=== PATIENT | female | born 1995 | race Caucasian/White ===

== ENCOUNTER 2023-10-28 08:24 | Emergency (ER) | payer OTHER, MEDICAID, SELFPAY ==
[2023-10-28] VITALS (39 sets, daily range): BP systolic 119–151; BP diastolic 63–100; PULSE 61–114; RESP 16–22; TEMP 36.7; O2SAT 88–99; BMI 50.8
--- NOTE | 2023-10-28 08:59 | ED.GENADULT ---
HPI - General Adult <Sky Marion DO - Last Filed: 11/02/23 07:05> General Chief complaint: Abdominal Pain Stated complaint: gallstone Time Seen by Provider: 10/28/23 08:29 Source: patient Mode of arrival: Ambulatory History of Present Illness HPI narrative: Patient is a 28-year-old otherwise healthy female who is here for evaluation of right upper quadrant abdominal pain. She states her symptoms started approximately 6 days ago. They have been progressively worsening since then. She went to an outside emergency department last evening (approximately 12 hours ago). Had labs performed. Per report she had elevation in her LFTs. Had a CT scan of her abdomen and a right upper quadrant ultrasound. I do have a right upper quadrant ultrasound report in it states that the patient has small mobile gallstones within the gallbladder without additional sonographic signs of cholecystitis. The gallbladder wall was not thickened. There is no pericholecystic fluid. It was reported negative sonographic Rosen's sign. Patient states that she was discharged home with pain medication. She states that her symptoms have progressively worsened since then. She was having some nausea. Has had some alternating constipation and diarrhea. Related Data Allergies Allergy/AdvReac Type Severity Reaction Status Date / Time shellfish derived Allergy swelling, Verified 10/28/23 09:17 redness Review of Systems <Sky Marion DO - Last Filed: 11/02/23 07:05> Constitutional Constitutional: Reports system reviewed and no additional complaints, except as documented Cardiovascular Cardiovascular: Reports system reviewed and no additional complaints, except as documented Respiratory Respiratory: Reports system reviewed and no additional complaints, except as documented Gastrointestinal Gastrointestinal: Reports system reviewed and no additional complaints, except as documented Genitourinary Genitourinary: Reports system reviewed and no additional complaints, except as documented Integumentary/Breasts Skin/Breast: Reports system reviewed and no additional complaints, except as documented Patient History <Sky Marion DO - Last Filed: 11/02/23 07:05> Social History Smoking Status: Never smoker Smoking Status: Never smoker Substance Use Type: marijuana Exam <Sky Marion DO - Last Filed: 11/02/23 07:05> Initial Vital Signs Initial Vital Signs: Vital Signs Temperature 98.1 F 10/28/23 08:49 Pulse Rate 114 H 10/28/23 08:49 Respiratory Rate 22 10/28/23 08:49 Blood Pressure 138/96 H 10/28/23 08:49 Pulse Oximetry 98 10/28/23 08:49 Oxygen Delivery Method Room Air 10/28/23 08:49 Const General: cooperative and No ill appearing [facility] Head: normal to inspection and normocephalic Resp Effort & Inspection: normal respiratory effort Auscultation: clear to auscultation bilaterally Cardio Rate: regular rate Rhythm: regular rhythm GI Inspection: normal to inspection and non-distended Palpation: soft, No firm, No guarding and tender (Right upper quadrant) Skin General: no rashes or lesions noted Neuro General: patient alert, patient awake and moves all extremities <Katharine Ahumada DO - Last Filed: 10/28/23 22:22> Initial Vital Signs Initial Vital Signs: Vital Signs Temperature 98.1 F 10/28/23 08:49 Pulse Rate 114 H 10/28/23 08:49 Respiratory Rate 22 10/28/23 08:49 Blood Pressure 138/96 H 10/28/23 08:49 Pulse Oximetry 98 10/28/23 08:49 Oxygen Delivery Method Room Air 10/28/23 08:49 Course <Sky Marion, DO - Last Filed: 11/02/23 07:05> Orders Ordered: Discontinued Medications Al Hydrox/Mg Hydrox/Simethicone 20 ml/ Lidocaine HCl 15 ml 0 ml PO NOW ONE Stop: 10/28/23 15:26 Last Admin: 10/28/23 15:33 Dose: 10 ml Documented By: SPF Droperidol (Droperidol 5 Mg/2 Ml Vial) 1.25 mg IV NOW ONE Stop: 10/28/23 20:01 Last Admin: 10/28/23 20:20 Dose: 1.25 mg Documented By: SB Hydromorphone HCl (Hydromorphone 1 Mg Inj) 1 mg IV NOW ONE Stop: 10/28/23 10:13 Last Admin: 10/28/23 10:32 Dose: 1 mg Documented By: SPF Hydromorphone HCl (Hydromorphone 1 Mg Inj) 1 mg IV NOW ONE Stop: 10/28/23 13:52 Last Admin: 10/28/23 14:02 Dose: 1 mg Documented By: MLM Hydromorphone HCl (Hydromorphone 1 Mg Inj) 1 mg IV Q3HR PRN PRN Reason: Pain, Mild (1-3) Last Admin: 10/28/23 20:28 Dose: 1 mg Documented By: Admin: 10/28/23 17:16 Dose: 1 mg Documented By: SPF Piperacillin Sod/Tazobactam (Sod 4.5 gm/ Sodium Chloride) 100 mls @ 200 mls/hr IV NOW ONE Stop: 10/28/23 10:36 Last Infusion: 10/28/23 12:00 Dose: Infused Documented By: Admin: 10/28/23 11:16 Dose: 200 mls/hr Documented By: SPF Sodium Chloride (Normal Saline 0.9%) 1,000 mls @ 125 mls/hr IV CONT ERMA Last Admin: 10/28/23 13:49 Dose: 125 mls/hr Documented By: SUKUMAR Piperacillin Sod/Tazobactam (Sod 4.5 gm/ Sodium Chloride) 100 mls @ 200 mls/hr IV Q6HR [facility] Last Infusion: 10/28/23 19:00 Dose: Infused Documented By: Admin: 10/28/23 18:31 Dose: 200 mls/hr Documented By: SPF Ketorolac Tromethamine (Ketorolac 30 Mg/Ml Vial) 30 mg IV NOW ONE Stop: 10/28/23 08:59 Last Admin: 10/28/23 09:17 Dose: 30 mg Documented By: SUKUMAR Lorazepam (Lorazepam 2 Mg/Ml Inj) 0.5 mg IV NOW ONE Stop: 10/28/23 18:19 Last Admin: 10/28/23 18:25 Dose: 0.5 mg Documented By: SUKUMAR Metoclopramide HCl (Metoclopramide 10 Mg/2 Ml Inj) 10 mg IV NOW ONE Stop: 10/28/23 11:34 Last Admin: 10/28/23 12:00 Dose: 10 mg Documented By: SUKUMAR Ondansetron HCl (Ondansetron 4 Mg/2 Ml Inj) 4 mg IV NOW ONE Stop: 10/28/23 08:59 Last Admin: 10/28/23 09:18 Dose: 4 mg Documented By: SUKUMAR Ondansetron HCl (Ondansetron 4 Mg/2 Ml Inj) 4 mg IV NOW ONE Stop: 10/28/23 14:34 Last Admin: 10/28/23 14:47 Dose: 4 mg Documented By: SUKUMAR Pantoprazole Sodium (Pantoprazole 40 Mg Vial) 40 mg IV NOW ONE Stop: 10/28/23 14:31 Last Admin: 10/28/23 14:45 Dose: 40 mg Documented By: SUKUMAR Vital Signs Vital signs: Vital Signs - 8 hr 10/28/23 14:30 10/28/23 14:31 10/28/23 14:31 Pulse Rate 83 89 Respiratory Rate Blood Pressure 129/75 Pulse Oximetry 99 98 Oxygen Delivery Method Oxygen Flow Rate 10/28/23 15:00 10/28/23 15:00 10/28/23 15:30 Pulse Rate 101 H 93 H Respiratory Rate Blood Pressure 121/69 Pulse Oximetry 98 99 Oxygen Delivery Method Room Air Oxygen Flow Rate 10/28/23 15:30 10/28/23 16:00 10/28/23 16:01 Pulse Rate 78 101 H Respiratory Rate Blood Pressure 129/81 Pulse Oximetry 97 97 Oxygen Delivery Method Oxygen Flow Rate 10/28/23 16:01 10/28/23 16:30 10/28/23 16:31 Pulse Rate 94 H 90 Respiratory Rate Blood Pressure 132/80 Pulse Oximetry 97 97 Oxygen Delivery Method Oxygen Flow Rate 10/28/23 16:31 10/28/23 17:00 10/28/23 17:01 Pulse Rate 82 94 H Respiratory Rate Blood Pressure 124/63 Pulse Oximetry 98 97 Oxygen Delivery Method Room Air Room Air Oxygen Flow Rate 10/28/23 17:01 10/28/23 17:30 10/28/23 18:00 Pulse Rate 82 90 Respiratory Rate 18 Blood Pressure 119/91 H Pulse Oximetry 97 97 Oxygen Delivery Method Room Air Oxygen Flow Rate 10/28/23 18:00 10/28/23 18:30 10/28/23 18:43 Pulse Rate 71 Respiratory Rate Blood Pressure 126/74 Pulse Oximetry 98 88 L Oxygen Delivery Method Room Air Room Air Oxygen Flow Rate 10/28/23 18:45 10/28/23 19:00 10/28/23 19:01 Pulse Rate 64 88 Respiratory Rate 16 Blood Pressure 139/70 Pulse Oximetry 98 98 Oxygen Delivery Method Nasal Cannula Oxygen Flow Rate 2 10/28/23 19:01 10/28/23 19:15 10/28/23 19:30 Pulse Rate 88 80 70 Respiratory Rate 16 Blood Pressure Pulse Oximetry 97 98 98 Oxygen Delivery Method Room Air Oxygen Flow Rate 10/28/23 19:45 10/28/23 20:00 10/28/23 20:01 Pulse Rate 97 H 87 74 Respiratory Rate Blood Pressure Pulse Oximetry 98 98 98 Oxygen Delivery Method Oxygen Flow Rate 10/28/23 20:01 10/28/23 20:15 10/28/23 20:30 Pulse Rate 89 98 H Respiratory Rate Blood Pressure 135/75 Pulse Oximetry 97 98 Oxygen Delivery Method Oxygen Flow Rate 10/28/23 20:45 10/28/23 22:04 10/28/23 22:05 Pulse Rate 61 112 H Respiratory Rate Blood Pressure Pulse Oximetry 99 93 93 Oxygen Delivery Method Room Air Oxygen Flow Rate 10/28/23 22:05 Pulse Rate Respiratory Rate 16 Blood Pressure 151/100 H Pulse Oximetry Oxygen Delivery Method Oxygen Flow Rate <Katharine Ahumada, - Last Filed: 10/28/23 22:22> Orders Ordered: Discontinued Medications Al Hydrox/Mg Hydrox/Simethicone 20 ml/ Lidocaine HCl 15 ml 0 ml PO NOW ONE Stop: 10/28/23 15:26 Last Admin: 10/28/23 15:33 Dose: 10 ml Documented By: SPF Droperidol (Droperidol 5 Mg/2 Ml Vial) 1.25 mg IV NOW ONE Stop: 10/28/23 20:01 Last Admin: 10/28/23 20:20 Dose: 1.25 mg Documented By: SB Hydromorphone HCl (Hydromorphone 1 Mg Inj) 1 mg IV NOW ONE Stop: 10/28/23 10:13 Last Admin: 10/28/23 10:32 Dose: 1 mg Documented By: SPF Hydromorphone HCl (Hydromorphone 1 Mg Inj) 1 mg IV NOW ONE Stop: 10/28/23 13:52 Last Admin: 10/28/23 14:02 Dose: 1 mg Documented By: MLM Hydromorphone HCl (Hydromorphone 1 Mg Inj) 1 mg IV Q3HR PRN PRN Reason: Pain, Mild (1-3) Last Admin: 10/28/23 20:28 Dose: 1 mg Documented By: Admin: 10/28/23 17:16 Dose: 1 mg Documented By: SPF Piperacillin Sod/Tazobactam (Sod 4.5 gm/ Sodium Chloride) 100 mls @ 200 mls/hr IV NOW ONE Stop: 10/28/23 10:36 Last Infusion: 10/28/23 12:00 Dose: Infused Documented By: Admin: 10/28/23 11:16 Dose: 200 mls/hr Documented By: SPF Sodium Chloride (Normal Saline 0.9%) 1,000 mls @ 125 mls/hr IV CONT ERMA Last Admin: 10/28/23 13:49 Dose: 125 mls/hr Documented By: SPF Piperacillin Sod/Tazobactam (Sod 4.5 gm/ Sodium Chloride) 100 mls @ 200 mls/hr IV Q6HR ERMA Last Infusion: 10/28/23 19:00 Dose: Infused Documented By: Admin: 10/28/23 18:31 Dose: 200 mls/hr Documented By: SPF Ketorolac Tromethamine (Ketorolac 30 Mg/Ml Vial) 30 mg IV NOW ONE Stop: 10/28/23 08:59 Last Admin: 10/28/23 09:17 Dose: 30 mg Documented By: SUKUMAR Lorazepam (Lorazepam 2 Mg/Ml Inj) 0.5 mg IV NOW ONE Stop: 10/28/23 18:19 Last Admin: 10/28/23 18:25 Dose: 0.5 mg Documented By: SUKUMAR Metoclopramide HCl (Metoclopramide 10 Mg/2 Ml Inj) 10 mg IV NOW ONE Stop: 10/28/23 11:34 Last Admin: 10/28/23 12:00 Dose: 10 mg Documented By: SUKUMAR Ondansetron HCl (Ondansetron 4 Mg/2 Ml Inj) 4 mg IV NOW ONE Stop: 10/28/23 08:59 Last Admin: 10/28/23 09:18 Dose: 4 mg Documented By: SUKUMAR Ondansetron HCl (Ondansetron 4 Mg/2 Ml Inj) 4 mg IV NOW ONE Stop: 10/28/23 14:34 Last Admin: 10/28/23 14:47 Dose: 4 mg Documented By: SPF Pantoprazole Sodium (Pantoprazole 40 Mg Vial) 40 mg IV NOW ONE Stop: 10/28/23 14:31 Last Admin: 10/28/23 14:45 Dose: 40 mg Documented By: SUKUMAR Vital Signs Vital signs: Vital Signs - 8 hr 10/28/23 14:30 10/28/23 14:31 10/28/23 14:31 Pulse Rate 83 89 Respiratory Rate Blood Pressure 129/75 Pulse Oximetry 99 98 Oxygen Delivery Method Oxygen Flow Rate 10/28/23 15:00 10/28/23 15:00 10/28/23 15:30 Pulse Rate 101 H 93 H Respiratory Rate Blood Pressure 121/69 Pulse Oximetry 98 99 Oxygen Delivery Method Room Air Oxygen Flow Rate 10/28/23 15:30 10/28/23 16:00 10/28/23 16:01 Pulse Rate 78 101 H Respiratory Rate Blood Pressure 129/81 Pulse Oximetry 97 97 Oxygen Delivery Method Oxygen Flow Rate 10/28/23 16:01 10/28/23 16:30 10/28/23 16:31 Pulse Rate 94 H 90 Respiratory Rate Blood Pressure 132/80 Pulse Oximetry 97 97 Oxygen Delivery Method Oxygen Flow Rate 10/28/23 16:31 10/28/23 17:00 10/28/23 17:01 Pulse Rate 82 94 H Respiratory Rate Blood Pressure 124/63 Pulse Oximetry 98 97 Oxygen Delivery Method Room Air Room Air Oxygen Flow Rate 10/28/23 17:01 10/28/23 17:30 10/28/23 18:00 Pulse Rate 82 90 Respiratory Rate 18 Blood Pressure 119/91 H Pulse Oximetry 97 97 Oxygen Delivery Method Room Air Oxygen Flow Rate 10/28/23 18:00 10/28/23 18:30 10/28/23 18:43 Pulse Rate 71 Respiratory Rate Blood Pressure 126/74 Pulse Oximetry 98 88 L Oxygen Delivery Method Room Air Room Air Oxygen Flow Rate 10/28/23 18:45 10/28/23 19:00 10/28/23 19:01 Pulse Rate 64 88 Respiratory Rate 16 Blood Pressure 139/70 Pulse Oximetry 98 98 Oxygen Delivery Method Nasal Cannula Oxygen Flow Rate 2 10/28/23 19:01 10/28/23 19:15 10/28/23 19:30 Pulse Rate 88 80 70 Respiratory Rate 16 Blood Pressure Pulse Oximetry 97 98 98 Oxygen Delivery Method Room Air Oxygen Flow Rate 10/28/23 19:45 10/28/23 20:00 10/28/23 20:01 Pulse Rate 97 H 87 74 Respiratory Rate Blood Pressure Pulse Oximetry 98 98 98 Oxygen Delivery Method Oxygen Flow Rate 10/28/23 20:01 10/28/23 20:15 10/28/23 20:30 Pulse Rate 89 98 H Respiratory Rate Blood Pressure 135/75 Pulse Oximetry 97 98 Oxygen Delivery Method Oxygen Flow Rate 10/28/23 20:45 10/28/23 22:04 10/28/23 22:05 Pulse Rate 61 112 H Respiratory Rate Blood Pressure Pulse Oximetry 99 93 93 Oxygen Delivery Method Room Air Oxygen Flow Rate 10/28/23 22:05 Pulse Rate Respiratory Rate 16 Blood Pressure 151/100 H Pulse Oximetry Oxygen Delivery Method Oxygen Flow Rate Medical Decision Making <Sky Marion DO - Last Filed: 11/02/23 07:05> Medical Records Medical records reviewed: Yes I reviewed the patient's medical records. Lab Data Lab results reviewed: Yes I reviewed the patient's lab results. 10/28/23 09:15 10/28/23 09:15 Labs: Lab Results 10/28/23 10/28/23 Range/Units 09:15 13:00 WBC 7.2 (4.5-11.0) X10^3/uL RBC 4.46 (4.0-5.2) X10^6/uL Hgb 11.8 L (12.0-16.0) g/dL Hct 36.4 (36-46) % MCV 81.6 (80-100) fL MCH 26.5 (26-34) PG MCHC 32.5 (30-36) % RDW 17.9 H (11.6-14.8) % Plt Count 390 (150-400) X10^3/uL Neut % (Auto) 70.5 (50-75) % Lymph % (Auto) 22.3 L (25-40) % [place] % (Auto) 5.9 (3-14) % Eos % (Auto) 0.7 L (2-4) % Baso % (Auto) 0.6 (0-2) % Neut # (Auto) 5100 (7805-2983) /uL Lymph # (Auto) 1600 (6005-2492) /uL [place] # (Auto) 400 (0-900) /uL Eos # (Auto) 100 (0-450) /uL Baso # (Auto) 0 (0-100) /uL Sodium 139 (137-145) mmol/L Potassium 3.6 (3.4-5.1) mmol/L Chloride 109 H (98-107) mmol/L Carbon Dioxide 19 L (22-32) mmol/L BUN 5 L (7-17) mg/dL Creatinine 0.43 L (0.52-1.04) mg/dL Estimated GFR > 60 (>60) mL/min BUN/Creatinine Ratio 11.6 (6-22) Glucose 116 H (70-100) mg/dL Calcium 9.9 (8.4-10.2) mg/dL Total Bilirubin 1.9 H (0.2-1.3) mg/dL AST 586 H (14-36) IU/L ALT 1391 H (<35) IU/L Alkaline Phosphatase 272 H (38-126) U/L Total Protein 8.5 H (6.3-8.2) g/dL Albumin 5.0 (3.5-5.0) g/dL Globulin 3.5 (1.7-4.1) g/dL Albumin/Globulin Ratio 1.4 (1.0-2.8) Lipase 49 (23-300) U/L Urine Color Yellow Urine Appearance Clear Urine pH 8.0 (4.5-8.0) Ur Specific [place] 1.020 (1.000-1.035) Urine Protein 2+ H (Negative) Urine Glucose (UA) Negative (Negative) g/dL Urine Ketones 3+ H (NEGATIVE) Urine Occult Blood Negative (Negative) Urine Nitrate Negative (Negative) Urine Bilirubin 2+ H (NEGATIVE) Ur Bilirubin Confirm Positive H (Negative) Urine Urobilinogen 1.0 (0.2) E.U./dL Ur Leukocyte Esterase Negative (NEGATIVE) Urine RBC None seen (0-5/HPF) Urine WBC 0-1/hpf (0-5/HPF) Ur Squamous Epith Cells 1-5 /hpf (0-5/HPF) Urine Bacteria None seen (None) Urine Mucus 1+ H (Negative) Ur Culture Indicated? Cult not indicated Vol Urine Centrifuged 10ml (spun) Point of Care Testing Test Results Negative Urine Dip Bedside Urine Glucose Negative Bedside Urine Bilirubin + 1 Bedside Urine Ketone +++ 80 Urine Specific [place] 1.015 Bedside Urine Occult Blood - Negative Bedside Urine pH 8.5 Bedside Urine Protein + 30 Bedside Urine Urobilinogen - Negative Bedside Urine Nitrite - Negative Bedside Urine Leukocytes +/- 15 Esterase Point of care testing: Point of Care Testing Test Results Negative Urine Dip Bedside Urine Glucose Negative Bedside Urine Bilirubin + 1 Bedside Urine Ketone +++ 80 Urine Specific [place] 1.015 Bedside Urine Occult Blood - Negative Bedside Urine pH 8.5 Bedside Urine Protein + 30 Bedside Urine Urobilinogen - Negative Bedside Urine Nitrite - Negative Bedside Urine Leukocytes +/- 15 Esterase Imaging Data US - abdomen: Radiologist's Impression: PROCEDURE: US ABDOMEN LIMITED INDICATIONS: RUQ US eval for GB pathology TECHNIQUE: Real-time scanning was performed of the abdominal and retroperitoneal organs, with image documentation. COMPARISON: None. FINDINGS: Images are degraded by body habitus. Liver: Liver is normal in size and homogeneous in echotexture. Gallbladder: There are a few mobile stones measure up to 8 mm. Positive sonographic Rosen sign per rice milling supervisor. No pericholecystic fluid. Biliary ducts: Intrahepatic bile ducts are non-dilated. Extrahepatic bile duct caliber measures 9.6 mm. Normal is 6-7 mm or less in diameter, or 10 mm or less post-cholecystectomy. Pancreas: Visualized portions of the pancreas are sonographically normal. Miscellaneous: No free abdominal fluid. IMPRESSION: Acute cholecystitis given the positive sonographic Rosen sign and cholelithiasis. There is continued increase in size of the common biliary duct suggesting distal obstruction. MRCP: Radiologist's Impression: PROCEDURE: MR ABDOMEN WO/W CON INDICATIONS: Eval for choledocholithiasis TECHNIQUE: Coronal HASTE, axial 2D FLASH in- and [id number]; axial breath-hold T2 FSE. Dynamic axial VIBE during the administration of contrast; post-contrast coronal VIBE or 2D FLASH with fat saturation from the hepatic dome to the iliac crests. Optional diffusion weighted imaging and ADC may be performed. COMPARISON: [facility], , US ABDOMEN LIMITED, 10/28/2023, 9:53. FINDINGS: Image quality: Diagnostic. Lung bases: Unremarkable. Liver: No solid mass. Gallbladder: Multiple gallstones within the gallbladder. Biliary ducts: Mild central common biliary ductal dilation measuring up to 9 mm. And the distal common biliary duct in the ampulla Vater there is abrupt shouldering with a possible stone identified on coronal image 6 of series 11 measuring 6 mm. Pancreas: No ductal dilation. Spleen: Size is within normal limits. Adrenal Glands: No adrenal nodules. Kidneys and Ureters: No hydronephrosis. No solid mass. No complex renal cystic lesion which requires follow up. Stomach and Bowel: Normal colonic caliber, without significant wall thickening. Peritoneum: No abnormal intraperitoneal fluid. No free air. Ventral Wall: No hernia. Abdominal Nodes: No retroperitoneal or mesenteric adenopathy by size criteria. Vessels: Aorta and inferior vena cava are normal in size. Bones: No aggressive osseous abnormality. IMPRESSION: Choledocholithiasis with stone near the ampulla measuring 6 mm with associated dilation of the common biliary duct. Cholelithiasis. MDM Narrative Medical decision making narrative: Patient has epigastric and right upper quadrant abdominal pain. Has not elevation in bilirubin and LFTs. Right upper quadrant ultrasound concerning for acute cholecystitis. MRCP shows choledocholithiasis. Because this patient requires ERCP. Antibiotics administered. Fluids administered. Will continue to try to control pain and nausea. Was able to review the ED record from yesterday. Presentation is similar to 2 today. Attempts made to contact multiple facilities that have ERCP capability. Currently no bed availability. Will keep here in the emergency department until disposition can be met. Care turned over to evening provider. <Katharine Ahumada, - Last Filed: 10/28/23 22:22> Lab Data Labs: Lab Results 10/28/23 10/28/23 Range/Units 09:15 13:00 WBC 7.2 (4.5-11.0) X10^3/uL RBC 4.46 (4.0-5.2) X10^6/uL Hgb 11.8 L (12.0-16.0) g/dL Hct 36.4 (36-46) % MCV 81.6 (80-100) fL MCH 26.5 (26-34) PG MCHC 32.5 (30-36) % RDW 17.9 H (11.6-14.8) % Plt Count 390 (150-400) X10^3/uL Neut % (Auto) 70.5 (50-75) % Lymph % (Auto) 22.3 L (25-40) % [place] % (Auto) 5.9 (3-14) % Eos % (Auto) 0.7 L (2-4) % Baso % (Auto) 0.6 (0-2) % Neut # (Auto) 5100 (0981-3628) /uL Lymph # (Auto) 1600 (9848-6182) /uL [place] # (Auto) 400 (0-900) /uL Eos # (Auto) 100 (0-450) /uL Baso # (Auto) 0 (0-100) /uL Sodium 139 (137-145) mmol/L Potassium 3.6 (3.4-5.1) mmol/L Chloride 109 H (98-107) mmol/L Carbon Dioxide 19 L (22-32) mmol/L BUN 5 L (7-17) mg/dL Creatinine 0.43 L (0.52-1.04) mg/dL Estimated GFR > 60 (>60) mL/min BUN/Creatinine Ratio 11.6 (6-22) Glucose 116 H (70-100) mg/dL Calcium 9.9 (8.4-10.2) mg/dL Total Bilirubin 1.9 H (0.2-1.3) mg/dL AST 586 H (14-36) IU/L ALT 1391 H (<35) IU/L Alkaline Phosphatase 272 H (38-126) U/L Total Protein 8.5 H (6.3-8.2) g/dL Albumin 5.0 (3.5-5.0) g/dL Globulin 3.5 (1.7-4.1) g/dL Albumin/Globulin Ratio 1.4 (1.0-2.8) Lipase 49 (23-300) U/L Urine Color Yellow Urine Appearance Clear Urine pH 8.0 (4.5-8.0) Ur Specific [place] 1.020 (1.000-1.035) Urine Protein 2+ H (Negative) Urine Glucose (UA) Negative (Negative) g/dL Urine Ketones 3+ H (NEGATIVE) Urine Occult Blood Negative (Negative) Urine Nitrate Negative (Negative) Urine Bilirubin 2+ H (NEGATIVE) Ur Bilirubin Confirm Positive H (Negative) Urine Urobilinogen 1.0 (0.2) E.U./dL Ur Leukocyte Esterase Negative (NEGATIVE) Urine RBC None seen (0-5/HPF) Urine WBC 0-1/hpf (0-5/HPF) Ur Squamous Epith Cells 1-5 /hpf (0-5/HPF) Urine Bacteria None seen (None) Urine Mucus 1+ H (Negative) Ur Culture Indicated? Cult not indicated Vol Urine Centrifuged 10ml (spun) Point of Care Testing Test Results Negative Urine Dip Bedside Urine Glucose Negative Bedside Urine Bilirubin + 1 Bedside Urine Ketone +++ 80 Urine Specific [place] 1.015 Bedside Urine Occult Blood - Negative Bedside Urine pH 8.5 Bedside Urine Protein + 30 Bedside Urine Urobilinogen - Negative Bedside Urine Nitrite - Negative Bedside Urine Leukocytes +/- 15 Esterase Point of care testing: Point of Care Testing Test Results Negative Urine Dip Bedside Urine Glucose Negative Bedside Urine Bilirubin + 1 Bedside Urine Ketone +++ 80 Urine Specific [place] 1.015 Bedside Urine Occult Blood - Negative Bedside Urine pH 8.5 Bedside Urine Protein + 30 Bedside Urine Urobilinogen - Negative Bedside Urine Nitrite - Negative Bedside Urine Leukocytes +/- 15 Esterase ECG Data Attestation: I personally reviewed and interpreted this ECG as follows: Interpretation: Sinus rhythm marked sinus arrhythmia rate 81 FL 150 QRS 84 QTC of 448. No acute ST changes appreciated. MDM Narrative Medical decision making narrative: Patient has epigastric and right upper quadrant abdominal pain. Has not elevation in bilirubin and LFTs. Right upper quadrant ultrasound concerning for acute cholecystitis. MRCP shows choledocholithiasis. Because this patient requires ERCP. Antibiotics administered. Fluids administered. Will continue to try to control pain and nausea. Was able to review the ED record from yesterday. Presentation is similar to 2 today. Attempts made to contact multiple facilities that have ERCP capability. Currently no bed availability. Will keep here in the emergency department until disposition can be met. Care turned over to evening provider. 10/28/2023 Dr. Ahumada: Patient signed out to myself. Patient seen and evaluated by myself has epigastric right upper quadrant pain was seen yesterday at outside facility has trending upwards LFTs from 1.6-1.9 bilirubin and AST of 553 with an ALT of 1346 alk-phos of 239 and a lipase less than 10 today AST is 556 ALT is 1391, alk-phos is 272 with negative lipase. Patient had repeat ultrasound today which shows acute cholecystitis with positive Rosen's sign cholelithiasis, few mobile stones no pericholecystic fluids dilated extrahepatic bile duct at 9.6 cm followed by MRCP which shows choledocholithiasis with stone near the ampulla measuring 6 mm with associated dilation of common bile duct cyst with cholelithiasis. Patient is on Zosyn q.6 hours, she has had multiple doses of pain medications, antinausea medication no active vomiting but still quite uncomfortable. Patient did have a dose of Ativan about hour after Dilaudid and has since required a L or so of oxygen. Has not had any requiring before she would may have some hypoventilation secondary to her habitus as well. This was relayed to Dr. Leal the hospitalist. Calls have been placed awaiting call back from Gastroenterology for possible transfer for ERCP. Spoke with Dr. Emilia Leal, hospitalist who accepts for inpatient. Plan for ERCP with Gastroenterology and they will decide whether or not to have patient's gallbladder removed. Waiting call back with bed assignment. Patient has continued to have quite a bit of nausea. Has had Zofran, Reglan, Ativan with consistent nausea. She did have droperidol at facility yesterday which was somewhat helpful so EKG was obtained to evaluate for QT appears appropriate patient was given a dose in the department. Patient continues to feel improved after droperidol on recheck and comfortable with transfer. Discharge Plan Departure Patient Disposition: [facility] Clinical Impression: Choledocholithiasis, Acute cholecystitis
--- NOTE | 2023-10-28 09:07 | DI.US.S_ITS ---
PROCEDURE: US ABDOMEN LIMITED INDICATIONS: RUQ US eval for GB pathology TECHNIQUE: Real-time scanning was performed of the abdominal and retroperitoneal organs, with image documentation. COMPARISON: None. FINDINGS: Images are degraded by body habitus. Liver: Liver is normal in size and homogeneous in echotexture. Gallbladder: There are a few mobile stones measure up to 8 mm. Positive sonographic Rosen sign per paramedic rn. No pericholecystic fluid. Biliary ducts: Intrahepatic bile ducts are non-dilated. Extrahepatic bile duct caliber measures 9.6 mm. Normal is 6-7 mm or less in diameter, or 10 mm or less post-cholecystectomy. Pancreas: Visualized portions of the pancreas are sonographically normal. Miscellaneous: No free abdominal fluid. IMPRESSION: Acute cholecystitis given the positive sonographic Rosen sign and cholelithiasis. There is continued increase in size of the common biliary duct suggesting distal obstruction. Dictated by: Corby Jones M.D. on 10/28/2023 at 9:25 Approved by: Corby Jones M.D. on 10/28/2023 at 9:31
[2023-10-28] MEDS: KETOROLAC 30 MG/ML VIAL IV (09:17)
[2023-10-28] MEDS: ONDANSETRON 4 MG/2 ML INJ IV ×2 (09:18→14:47)
[2023-10-28 09:33] LABS: Add Manual Diff / Slide Review NO; Basophils Absolute Auto 0 /uL (0-100); Basophils Percent Auto 0.6 % (0-2); Eosinophils Absolute Auto 100 /uL (0-450); Eosinophils Percent Auto 0.7 % (2-4); Hematocrit 36.4 % (36-46); Hemoglobin 11.8 g/dL (12.0-16.0); Lymphocytes Absolute Auto 1600 /uL (1100-4500); Lymphocytes Percent Auto 22.3 % (25-40); Mean Corpuscular HGB Conc 32.5 % (30-36); Mean Corpuscular Hemoglobin 26.5 PG (26-34); Mean Corpuscular Volume 81.6 fL (80-100); Monocytes Absolute Auto 400 /uL (0-900); Monocytes Percent Auto 5.9 % (3-14); Neutrophils Absolute Auto 5100 /uL (1500-7000); Neutrophils Percent Auto 70.5 % (50-75); Platelet Count 390 X10^3/uL (150-400); Red Blood Cell Count 4.46 X10^6/uL (4.0-5.2); Red Cell Distribution Width 17.9 % (11.6-14.8); White Blood Cell Count 7.2 X10^3/uL (4.5-11.0)
[2023-10-28 09:48] LABS: Albumin Globulin Ratio 1.4 (1.0-2.8); Alkaline Phosphatase 272 U/L (38-126); Aspartate Aminotransferase 586 IU/L (14-36); BUN Creatinine Ratio 11.6 (6-22); Bilirubin Total 1.9 mg/dL (0.2-1.3); Blood Urea Nitrogen 5 mg/dL (7-17); Calcium 9.9 mg/dL (8.4-10.2); Carbon Dioxide 19 mmol/L (22-32); Chloride 109 mmol/L (98-107); Estimated Glomerular Filt Rate > 60 mL/min (>60); Globulin 3.5 g/dL (1.7-4.1); Glucose 116 mg/dL (70-100); HEMOLYSIS < 15 (0-50); Lipase 49 U/L (23-300); Potassium 3.6 mmol/L (3.4-5.1); Sodium 139 mmol/L (137-145); Total Protein 8.5 g/dL (6.3-8.2)
[2023-10-28 09:54] LABS: Alanine Aminotransferase 1391 IU/L (<35)
[2023-10-28] MEDS: HYDROMORPHONE 1 MG INJ IV ×4 (10:32→20:28)
[2023-10-28] MEDS: PIPERACILLIN/TAZO 4.5 GM in SODIUM CHLORIDE 0.9% 100 ML IV ×2 (11:16→18:31)
[2023-10-28] MEDS: METOCLOPRAMIDE 10 MG/2 ML INJ IV (12:00)
[2023-10-28 13:45] LABS: Appearance Urine UA CLEAR; Bilirubin Urine UA 2+ (NEGATIVE); Color Urine UA YELLOW; Glucose Urine UA NEGATIVE (Negative); Ketones Urine UA 3+ (NEGATIVE); Leukocyte Esterase Urine UA NEGATIVE (NEGATIVE); Nitrite Urine UA NEGATIVE (Negative); Occult Blood Urine UA NEGATIVE (Negative); Protein Urine UA 2+ (Negative)
[2023-10-28] MEDS: SODIUM CHLORIDE 0.9% 1,000 ML 125 ML IV (13:49)
[2023-10-28 13:52] LABS: Urine Volume 10mL (spun)
[2023-10-28 13:56] LABS: Bacteria Urine None Seen; Culture Indicated Urine Cult Not Indicated; Mucus Urine 1+ (Negative); RBC Urine None Seen (0-5/HPF); Squamous Epithelial Cell Urine 1-5 /HPF (0-5/HPF); WBC Urine 0-1/HPF (0-5/HPF)
[2023-10-28 13:57] LABS: Ictotest Urine Positive (Negative)
--- NOTE | 2023-10-28 14:24 | DI.MRI.S_ITS ---
PROCEDURE: MR ABDOMEN WO/W CON INDICATIONS: Eval for choledocholithiasis TECHNIQUE: Coronal HASTE, axial 2D FLASH in- and [id number]; axial breath-hold T2 FSE. Dynamic axial VIBE during the administration of contrast; post-contrast coronal VIBE or 2D FLASH with fat saturation from the hepatic dome to the iliac crests. Optional diffusion weighted imaging and ADC may be performed. COMPARISON: [facility], US, US ABDOMEN LIMITED, 10/28/2023, 9:53. FINDINGS: Image quality: Diagnostic. Lung bases: Unremarkable. Liver: No solid mass. Gallbladder: Multiple gallstones within the gallbladder. Biliary ducts: Mild central common biliary ductal dilation measuring up to 9 mm. And the distal common biliary duct in the ampulla Vater there is abrupt shouldering with a possible stone identified on coronal image 6 of series 11 measuring 6 mm. Pancreas: No ductal dilation. Spleen: Size is within normal limits. Adrenal Glands: No adrenal nodules. Kidneys and Ureters: No hydronephrosis. No solid mass. No complex renal cystic lesion which requires follow up. Stomach and Bowel: Normal colonic caliber, without significant wall thickening. Peritoneum: No abnormal intraperitoneal fluid. No free air. Ventral Wall: No hernia. Abdominal Nodes: No retroperitoneal or mesenteric adenopathy by size criteria. Vessels: Aorta and inferior vena cava are normal in size. Bones: No aggressive osseous abnormality. IMPRESSION: Choledocholithiasis with stone near the ampulla measuring 6 mm with associated dilation of the common biliary duct. Cholelithiasis. Dictated by: Corby Jones M.D. on 10/28/2023 at 13:30 Approved by: Corby Jones M.D. on 10/28/2023 at 13:36
[2023-10-28] MEDS: PANTOPRAZOLE 40 MG VIAL IV (14:45)
--- NOTE | 2023-10-28 15:25 | PC.NURSE ---
Pt reports her stomach is feeling better but patient continues to have cough/dry heaving. She describes having something stuck in my throat. Provider notified, new orders, see MAR.
[2023-10-28] MEDS: MAG HYDROX/ALUMINUM/SIMETH SUS 20 ML, LIDOCAINE VISCOUS 2% 15 ML PO (15:33)
[2023-10-28] MEDS: LORazepam 2 MG/ML INJ 0.5 MG IV (18:25)
[2023-10-28] MEDS: DROPERIDOL 5 MG/2 ML VIAL 1.25 MG IV (20:20)
--- NOTE | 2023-10-28 22:25 | PC.NURSE ---
221: [facility] transport crew arrives, report given to ANAMIKA De La Rosa RN. Patient ambulatory in hallway, used bathroom prior to positioning self on transport stretcher. Patient reports pain much better controlled and nausea is minimal. Patient is on RA. IV to L AC is patent and NS continues to infuse at 125mls/hr. 222: [facility] called to give report to receiving RN (#[phone], Ext [phone]). Spoke with LYNDSAY Betancourt who took report and states he will be taking the patient. All questions answered. Patient left [facility] at approximately 2225, ETA for patient's arrival to accepting facility is 2320.
== END 2023-10-28 22:32 | disposition short-term general hospital (02) ==
PROVIDERS: Emergency Medicine; Emergency Provider Emergency Medicine
DX: K80.00 Calculus of gallbladder with acute cholecystitis without obstruction (principal)
CPT/HCPCS: 36415; 74183; 76705; 80053; 81001; 81003; 81025; 83690; 85025; 93005; 96365; 96366; 96375; 96376; 99284; 99285; A9579; C9113; J1170; J1790; J1885; J2060; J2405; J2543; J2765